=== PATIENT | male | born 1950 | race African-American/Black ===

== ENCOUNTER 2017-11-22 16:53 | Emergency (ER) | payer MEDICARE ==
[~2017-11-22] VITALS: Ht 182.9 cm; Wt 69.0 kg
[~2017-11-22 16:53] MED LIST: no home meds
[2017-11-22] MEDS ORDERED: SODIUM CHLORIDE 0.9% 1,000 ML IV ONE (17:40)
[2017-11-22 18:14] LABS: BASOPHILS % 0.5 % (0.0-2.0); CHLORIDE 105 mEq/L (98-107); EOSINOPHILS % 0.8 % (0.0-5.0); HEMOGLOBIN. 11.9 g/dL (14.0-18.0); LYMPHOCYTES % 34.7 % (20.0-50.0); MEAN CORPUSCULAR HEMOGLOBIN 28.2 pg (28.0-32.0); MEAN CORPUSCULAR VOLUME 85.6 fL (80.0-94.0); MEAN PLATELET VOLUME 7.3 fl (7.4-10.4); PLATELET 260 x1000/uL (130-400); RED BLOOD CELL COUNT 4.21 mill/uL (4.7-6.1); RED CELL DISTRIBUTION WIDTH 14.6 % (11.6-14.6)
[2017-11-22 18:18] LABS: ETHANOL BLOOD 181 mg/dL
[2017-11-22 18:19] LABS: PARTIAL THROMBOPLASTIN TIME 25.3 sec (23.4-31.0); PROTHROMBIN TIME 10.5 sec (9.4-11.6)
[2017-11-22 21:08] LABS: *AMPHETAMINES SCREEN URINE NEGATIVE (NEGATIVE); *COCAINE SCREEN URINE PRESUMTIVE POSITIVE (NEGATIVE)
[2017-11-22 21:09] LABS: *BARBITURATES SCREEN URINE NEGATIVE (NEGATIVE); *BENZODIAZEPINES SCREEN URINE NEGATIVE (NEGATIVE); CANNABINOID URINE SCREEN NEGATIVE (NEGATIVE); METHADONE URINE SCREEN NEGATIVE (NEGATIVE); OPIATES URINE SCREEN NEGATIVE (NEGATIVE); PHENCYCLIDINE URINE SCREEN NEGATIVE (NEGATIVE)
[2017-11-22 21:55] VITALS: BP 103/62
== END 2017-11-22 21:55 | disposition home or self-care (01) ==
LOC: ER 16:53
DX: R53.1 Weakness (principal); F10.129 Alcohol abuse with intoxication, unspecified; G92 Toxic encephalopathy; E86.0 Dehydration; E87.8 Other disorders of electrolyte and fluid balance, not elsewhere classified; Z88.0 Allergy status to penicillin
CPT/HCPCS: 36415; 70450; 80048; 80305; 80307; 80329; 84484; 85025; 85610; 85730; 93005; 96360; 96361; 99285; G0482; J7030

== ENCOUNTER 2017-12-29 11:40 | Emergency (ER) | payer MEDICARE ==
[~2017-12-29] VITALS: Ht 172.7 cm; Wt 70.0 kg
[2017-12-29] MEDS ORDERED: KETOROLAC 30MG/ML VIAL IV ONE (12:30)
[2017-12-29 12:34] VITALS: BP 148/88
== END 2017-12-29 12:51 | disposition home or self-care (01) ==
LOC: ER 11:56
DX: M25.562 Pain in left knee (principal); M25.561 Pain in right knee; I10 Essential (primary) hypertension; F14.10 Cocaine abuse, uncomplicated; Z88.0 Allergy status to penicillin; Z86.12 Personal history of poliomyelitis; X50.1XXA Overexertion from prolonged static or awkward postures, initial encounter; Y93.89 Activity, other specified; Y92.89 Other specified places as the place of occurrence of the external cause; Y99.8 Other external cause status
CPT/HCPCS: 96374; 99284; J1885; J7050

== ENCOUNTER 2018-05-29 07:10 | Emergency (ER) | payer MEDICARE ==
[~2018-05-29] VITALS: Ht 177.8 cm; Wt 68.2 kg
[2018-05-29] MEDS ORDERED: MORPHINE SULFATE 4 MG/ML CPJ (NOT FOR IM USE) IV STA (07:35)
[2018-05-29] MEDS ORDERED: SODIUM CHLORIDE 0.9% 1,000 ML IV ONE (07:35)
[2018-05-29] MEDS ORDERED: ONDANSETRON HCL 4MG/2ML INJ IV STA (07:35)
[2018-05-29] MEDS ORDERED: ASPIRIN 81MG TABLET PO ONE (07:45)
[2018-05-29] MEDS ORDERED: FAMOTIDINE 20MG/2ML VIAL IV ONE (07:45)
[2018-05-29 08:21] LABS: BASOPHILS % 0.9 % (0.0-2.0); HEMATOCRIT. 36.1 % (42.0-52.0); HEMOGLOBIN. 11.9 g/dL (14.0-18.0); MEAN CORPUSCULAR HEMOGLOBIN 28.1 pg (28.0-32.0); MEAN PLATELET VOLUME 7.2 fl (7.4-10.4); MONOCYTES % 12.9 % (2.0-8.0); NEUTROPHILS % 53.2 % (40.0-76.0); PLATELET 240 x1000/uL (130-400); RED BLOOD CELL COUNT 4.25 mill/uL (4.7-6.1); RED CELL DISTRIBUTION WIDTH 13.9 % (11.6-14.6)
[2018-05-29 08:27] LABS: PARTIAL THROMBOPLASTIN TIME 27.2 sec (23.4-31.0); PROTHROMBIN TIME 10.1 sec (9.1-11.1)
[2018-05-29 08:29] LABS: CHLORIDE 101 mEq/L (98-107)
[2018-05-29 08:39] LABS: *AMPHETAMINES SCREEN URINE PRESUMTIVE POSITIVE (NEGATIVE); *BARBITURATES SCREEN URINE NEGATIVE (NEGATIVE); *BENZODIAZEPINES SCREEN URINE NEGATIVE (NEGATIVE); *COCAINE SCREEN URINE NEGATIVE (NEGATIVE); CANNABINOID URINE SCREEN NEGATIVE (NEGATIVE); METHADONE URINE SCREEN NEGATIVE (NEGATIVE); OPIATES URINE SCREEN NEGATIVE (NEGATIVE); PHENCYCLIDINE URINE SCREEN NEGATIVE (NEGATIVE)
[2018-05-29 08:40] LABS: ETHANOL BLOOD < 10 mg/dL
[2018-05-29 09:40] VITALS: BP 123/68
== END 2018-05-29 12:22 | disposition left against medical advice (07) ==
LOC: ER 07:10 → EDBEDREQ 11:17 → EDBEDREQTM 11:17 → ER 12:22 → CANBEDREQ 12:55
DX: R07.89 Other chest pain (principal); R06.02 Shortness of breath; F15.10 Other stimulant abuse, uncomplicated; I10 Essential (primary) hypertension; F17.200 Nicotine dependence, unspecified, uncomplicated; F14.10 Cocaine abuse, uncomplicated; Z88.0 Allergy status to penicillin
CPT/HCPCS: 36415; 71045; 80053; 80305; 83880; 84484; 85025; 85610; 85730; 93005; 99285; G0482; J7030

== ENCOUNTER 2018-07-24 08:41 | Emergency (ER) | payer MEDICARE ==
[~2018-07-24] VITALS: Ht 180.3 cm; Wt 79.0 kg
[2018-07-24] MEDS ORDERED: SODIUM CHLORIDE 0.9% 1,000 ML IV ONE (16:29)
[2018-07-24 17:28] LABS: BASOPHILS % 1.1 % (0.0-2.0); EOSINOPHILS % 1.4 % (0.0-5.0); HEMATOCRIT. 36.8 % (42.0-52.0); HEMOGLOBIN. 12.2 g/dL (14.0-18.0); LYMPHOCYTES % 31.6 % (20.0-50.0); MEAN CORPUSCULAR HEMOGLOBIN 28.3 pg (28.0-32.0); MEAN CORPUSCULAR VOLUME 85.7 fL (80.0-94.0); MEAN PLATELET VOLUME 7.4 fl (7.4-10.4); MONOCYTES % 11.3 % (2.0-8.0); NEUTROPHILS % 54.6 % (40.0-76.0); PLATELET 283 x1000/uL (130-400); RED CELL DISTRIBUTION WIDTH 14.6 % (11.6-14.6)
[2018-07-24 17:33] LABS: CHLORIDE 102 mEq/L (98-107)
[2018-07-24 17:34] LABS: PROTHROMBIN TIME 10.2 sec (9.1-11.1)
[2018-07-24 17:38] LABS: ETHANOL BLOOD < 10 mg/dL
[2018-07-24 18:24] LABS: CLARITY URINE CLEAR (CLEAR); COLOR URINE YELLOW (YELLOW); KETONES URINE 1+ (NEGATIVE); LEUKOCYTE ESTERASE URINE NEGATIVE (NEGATIVE); NITRITE URINE NEGATIVE (NEGATIVE); OCCULT BLOOD URINE NEGATIVE (NEGATIVE); PROTEIN URINE NEGATIVE (NEGATIVE); SPECIFIC GRAVITY URINE 1.022 (1.005-1.030)
[2018-07-24 18:39] LABS: *AMPHETAMINES SCREEN URINE NEGATIVE (NEGATIVE); *BARBITURATES SCREEN URINE NEGATIVE (NEGATIVE); *BENZODIAZEPINES SCREEN URINE NEGATIVE (NEGATIVE); *COCAINE SCREEN URINE PRESUMTIVE POSITIVE (NEGATIVE); METHADONE URINE SCREEN NEGATIVE (NEGATIVE); OPIATES URINE SCREEN NEGATIVE (NEGATIVE)
[2018-07-24 18:40] LABS: CANNABINOID URINE SCREEN NEGATIVE (NEGATIVE); PHENCYCLIDINE URINE SCREEN NEGATIVE (NEGATIVE)
[2018-07-25 14:25] VITALS: BP 161/86
== END 2018-07-25 14:30 | disposition home or self-care (01) ==
LOC: ER 08:41
DX: F14.10 Cocaine abuse, uncomplicated (principal); E86.0 Dehydration; R45.851 Suicidal ideations; Z88.0 Allergy status to penicillin
CPT/HCPCS: 36415; 70450; 71045; 80053; 80305; 81003; 84484; 85025; 85610; 93005; 96360; 96361; 99284; G0482; J7030

== ENCOUNTER 2018-09-20 14:24 | Emergency (ER) | payer MEDICARE ==
[~2018-09-20] VITALS: Ht 177.8 cm; Wt 80.0 kg
[2018-09-20 14:37] VITALS: BP 126/73
== END 2018-09-20 17:35 | disposition left against medical advice (07) ==
LOC: ER 14:24
DX: R44.0 Auditory hallucinations (principal); Z53.21 Procedure and treatment not carried out due to patient leaving prior to being seen by health care provider

== ENCOUNTER 2018-09-30 16:52 | Emergency (ER) | payer MEDICARE ==
[~2018-09-30] VITALS: Ht 182.9 cm; Wt 81.0 kg
[2018-09-30] MEDS ORDERED: SODIUM CHLORIDE 0.9% 500 ML IV ONE (17:45)
[2018-09-30] MEDS ORDERED: ACETAMINOPHEN 325MG TABLET PO ONE (17:45)
[2018-09-30 19:24] LABS: CHLORIDE 103 mEq/L (98-107)
[2018-09-30 19:26] LABS: BASOPHILS % 0.8 % (0.0-2.0); EOSINOPHILS % 1.1 % (0.0-5.0); HEMATOCRIT. 40.3 % (42.0-52.0); HEMOGLOBIN. 13.2 g/dL (14.0-18.0); LYMPHOCYTES % 35.9 % (20.0-50.0); MEAN CORPUSCULAR HEMOGLOBIN 28.2 pg (28.0-32.0); MEAN CORPUSCULAR VOLUME 86.2 fL (80.0-94.0); MEAN PLATELET VOLUME 8.2 fl (7.4-10.4); MONOCYTES % 8.3 % (2.0-8.0); NEUTROPHILS % 53.9 % (40.0-76.0); PLATELET 311 x1000/uL (130-400); RED BLOOD CELL COUNT 4.68 mill/uL (4.7-6.1); RED CELL DISTRIBUTION WIDTH 14.1 % (11.6-14.6)
[2018-09-30 19:52] LABS: HEPATITIS B SURFACE ANTIGEN NEGATIVE
[2018-09-30 20:22] LABS: HEPATITIS A AB IGM NEGATIVE (NEGATIVE)
[2018-10-01 01:30] LABS: CLARITY URINE CLEAR (CLEAR); COLOR URINE YELLOW (YELLOW); KETONES URINE NEGATIVE (NEGATIVE); LEUKOCYTE ESTERASE URINE NEGATIVE (NEGATIVE); NITRITE URINE NEGATIVE (NEGATIVE); OCCULT BLOOD URINE NEGATIVE (NEGATIVE); PH URINE 7.5 (4.5-8.0); PROTEIN URINE NEGATIVE (NEGATIVE)
[2018-10-01 01:41] LABS: *AMPHETAMINES SCREEN URINE NEGATIVE (NEGATIVE); *BARBITURATES SCREEN URINE NEGATIVE (NEGATIVE); *BENZODIAZEPINES SCREEN URINE NEGATIVE (NEGATIVE); *COCAINE SCREEN URINE PRESUMTIVE POSITIVE (NEGATIVE); METHADONE URINE SCREEN NEGATIVE (NEGATIVE); OPIATES URINE SCREEN NEGATIVE (NEGATIVE); PHENCYCLIDINE URINE SCREEN NEGATIVE (NEGATIVE)
[2018-10-01 01:42] LABS: CANNABINOID URINE SCREEN PRESUMTIVE POSITIVE (NEGATIVE)
[2018-10-01 09:25] VITALS: BP 125/68
[2018-10-03 13:06] LABS: HIV SCREEN 4G Non Reactive (Non Reactive)
== END 2018-10-01 10:22 | disposition home or self-care (01) ==
LOC: ER 16:52
DX: M94.0 Chondrocostal junction syndrome [Tietze] (principal); F14.180 Cocaine abuse with cocaine-induced anxiety disorder; E86.0 Dehydration; D64.9 Anemia, unspecified; D72.821 Monocytosis (symptomatic); E87.6 Hypokalemia; R74.0 Nonspecific elevation of levels of transaminase and lactic acid dehydrogenase [LDH]; M72.2 Plantar fascial fibromatosis; M79.672 Pain in left foot; M79.671 Pain in right foot; R79.89 Other specified abnormal findings of blood chemistry; A80.9 Acute poliomyelitis, unspecified; F41.9 Anxiety disorder, unspecified; K21.9 Gastro-esophageal reflux disease without esophagitis; I10 Essential (primary) hypertension; R56.9 Unspecified convulsions
CPT/HCPCS: 36415; 71045; 80053; 80305; 81003; 83874; 83880; 84484; 85025; 87389; 93005; 96360; 99284; J7040; 86705; 86709; 86803; 87340

== ENCOUNTER 2018-10-08 00:55 | Emergency (ER) | payer MEDICARE ==
[~2018-10-08] VITALS: Ht 185.4 cm; Wt 70.3 kg
[2018-10-08 02:56] VITALS: BP 132/84
== END 2018-10-08 03:00 | disposition left against medical advice (07) ==
LOC: ER 00:55
DX: Z53.21 Procedure and treatment not carried out due to patient leaving prior to being seen by health care provider (principal); F41.9 Anxiety disorder, unspecified; K21.9 Gastro-esophageal reflux disease without esophagitis; I10 Essential (primary) hypertension; R56.9 Unspecified convulsions

== ENCOUNTER 2019-10-22 17:41 | Emergency (ER) | payer MEDICARE ==
[~2019-10-22] VITALS: Ht 182.9 cm; Wt 74.0 kg
[2019-10-22 17:42] VITALS: BP 142/88
== END 2019-10-22 19:34 | disposition left against medical advice (07) ==
LOC: ER 17:41
DX: J06.9 Acute upper respiratory infection, unspecified (principal); I10 Essential (primary) hypertension; E11.9 Type 2 diabetes mellitus without complications; F12.10 Cannabis abuse, uncomplicated; Z88.0 Allergy status to penicillin
CPT/HCPCS: 71045; 99283

== ENCOUNTER 2019-10-28 19:31 | Inpatient (IN) | payer MEDICARE, MEDICAID ==
[~2019-10-28] VITALS: Ht 182.9 cm; Wt 72.6 kg
[2019-10-28] MEDS ORDERED: SODIUM CHLORIDE 0.9% 1,000 ML IV ONE (20:00)
[2019-10-28 20:34] LABS: BASOPHILS % 1.1 % (0.0-2.0); EOSINOPHILS % 2.4 % (0.0-5.0); HEMATOCRIT. 33.8 % (42.0-52.0); HEMOGLOBIN. 11.6 g/dL (14.0-18.0); LYMPHOCYTES % 39.7 % (20.0-50.0); MEAN CORPUSCULAR HEMOGLOBIN 27.6 pg (28.0-32.0); MEAN CORPUSCULAR VOLUME 80.4 fL (80.0-94.0); MEAN PLATELET VOLUME 7.4 fl (7.4-10.4); NEUTROPHILS % 47.8 % (40.0-76.0); PLATELET 228 x1000/uL (130-400); RED BLOOD CELL COUNT 4.21 mill/uL (4.7-6.1); RED CELL DISTRIBUTION WIDTH 15.7 % (11.6-14.6)
[2019-10-28 20:38] LABS: CHLORIDE 107 mEq/L (98-107)
[2019-10-28 20:42] LABS: ETHANOL BLOOD 50 mg/dL
[2019-10-28] MEDS ORDERED: ASPIRIN 325MG TABLET PO NR (21:45)
[2019-10-28] MEDS ORDERED: MAGNESIUM/ALUMINUM HYDROXIDE/SIMETHICONE 30ML UDC PO ONE (22:00)
[2019-10-28] MEDS ORDERED: VISCOUS LIDOCAINE 2% 15 ML UDC PO ONE (22:00)
[2019-10-28] MEDS ORDERED: ACETAMINOPHEN 325MG TABLET PO PRN ×2 (22:15)
[2019-10-28] MEDS ORDERED: ONDANSETRON HCL 4MG/2ML INJ IV PRN (22:15)
[2019-10-28] MEDS ORDERED: LORAZEPAM 0.5MG TABLET PO PRN (22:15)
[2019-10-28] MEDS ORDERED: MAGNESIUM/ALUMINUM HYDROXIDE/SIMETHICONE 30ML UDC PO PRN (22:15)
[2019-10-28] MEDS ORDERED: KETOROLAC 15MG/ML VIAL IV PRN (22:15)
[2019-10-28] MEDS ORDERED: CLONIDINE 0.1MG TABLET PO PRN (22:15)
[2019-10-28] MEDS ORDERED: GUAIFENESIN 200MG/10ML SUGAR FREE UDC PO PRN (22:15)
[2019-10-28] MEDS ORDERED: DOCUSATE SODIUM 100MG CAPSULE PO PRN (22:15)
[2019-10-28] MEDS ORDERED: IPRATROPIUM/ALBUTEROL 0.5-3(2.5)MG/3ML NEB NEB PRN (22:15)
[2019-10-28] MEDS ORDERED: NITROGLYCERIN 0.4MG TABLET SL SL PRN (22:15)
[2019-10-28] MEDS ORDERED: TRAMADOL 50MG TABLET PO PRN (22:15)
[2019-10-29] MEDS ORDERED: MVI, ADULT NO.1 10 ML, FOLIC ACID 1 MG, THIAMINE HCL 100 MG in SODIUM CHLORIDE 0.9% 1,0... IV SCH ×4 (01:00)
[2019-10-29 02:11] LABS: CLARITY URINE CLEAR (CLEAR); COLOR URINE YELLOW (YELLOW); KETONES URINE NEGATIVE (NEGATIVE); LEUKOCYTE ESTERASE URINE NEGATIVE (NEGATIVE); NITRITE URINE NEGATIVE (NEGATIVE); OCCULT BLOOD URINE NEGATIVE (NEGATIVE); PROTEIN URINE NEGATIVE (NEGATIVE); SPECIFIC GRAVITY URINE 1.022 (1.005-1.030)
[2019-10-29 02:39] LABS: *AMPHETAMINES SCREEN URINE NEGATIVE (NEGATIVE); *BARBITURATES SCREEN URINE NEGATIVE (NEGATIVE); *BENZODIAZEPINES SCREEN URINE NEGATIVE (NEGATIVE); *COCAINE SCREEN URINE NEGATIVE (NEGATIVE)
[2019-10-29 02:40] LABS: CANNABINOID URINE SCREEN NEGATIVE (NEGATIVE); METHADONE URINE SCREEN NEGATIVE (NEGATIVE); OPIATES URINE SCREEN NEGATIVE (NEGATIVE); PHENCYCLIDINE URINE SCREEN NEGATIVE (NEGATIVE)
[2019-10-29] MEDS: FAMOTIDINE 20MG TABLET PO SCH ×2 (10:33→20:54)
[2019-10-29] MEDS: ASPIRIN 81MG EC TABLET PO SCH (10:33)
[2019-10-29 11:55] LABS: CREATINE KINASE 507 IU/L (39-308)
[2019-10-29 11:56] LABS: CREATINE KINASE MB FRACTION 3.5 ng/mL (0.5-3.6)
[2019-10-29 12:00] VITALS: BP 122/75
[2019-10-29] MEDS: SUCRALFATE 1 G/10 ML UDC PO SCH ×3 (13:15→20:54)
[2019-10-29] MEDS ORDERED: AMLO5TAB88 PO (15:24)
[2019-10-29] MEDS ORDERED: OMEP20TA2 PO (15:24)
[2019-10-29] MEDS ORDERED: ATOR20TA65 PO (15:24)
[2019-10-29] MEDS ORDERED: FERR325T6 PO (15:25)
[2019-10-29 16:00] VITALS: BP 111/75
[2019-10-29 20:00] VITALS: BP 101/66
[2019-10-29] MEDS ORDERED: ZOLPIDEM TARTRATE 5MG TABLET PO PRN (21:00)
[2019-10-30] VITALS: BP 97/69
[2019-10-30 04:00] VITALS: BP 109/67
[2019-10-30 07:55] LABS: CREATINE KINASE 270 IU/L (39-308); CREATINE KINASE MB FRACTION 1.8 ng/mL (0.5-3.6)
[2019-10-30 08:00] VITALS: BP 103/64
[2019-10-30] MEDS: ASPIRIN 81MG EC TABLET PO SCH (08:48)
[2019-10-30] MEDS: FAMOTIDINE 20MG TABLET PO SCH ×2 (08:48→21:52)
[2019-10-30] MEDS: SUCRALFATE 1 G/10 ML UDC PO SCH ×4 (08:48→21:52)
[2019-10-30] MEDS: ENOXAPARIN 40MG/0.4ML SYR SUBCUT SCH (08:55)
[2019-10-30 12:00] VITALS: BP 106/64
[2019-10-30 16:00] VITALS: BP 101/68
[2019-10-30 20:00] VITALS: BP 100/61
[2019-10-31] VITALS: BP 122/86
[2019-10-31 04:00] VITALS: BP 107/70
[2019-10-31] MEDS: SUCRALFATE 1 G/10 ML UDC PO SCH (07:40)
[2019-10-31 08:00] VITALS: BP 127/73
[2019-10-31] MEDS: ASPIRIN 81MG EC TABLET PO SCH (09:04)
[2019-10-31] MEDS: FAMOTIDINE 20MG TABLET PO SCH (09:04)
[2019-10-31] MEDS: ENOXAPARIN 40MG/0.4ML SYR SUBCUT SCH (09:05)
[2019-10-31 10:39] VITALS: BP 127/73
== END 2019-10-31 12:07 | disposition home or self-care (01) | DRG 301 ==
LOC: EDBD 19:31 → ER 19:31 → 7WST 21:51 → SUPCPDRO 22:08 → ENRESERV 10-29 07:11
PROVIDERS: ADMIT Internal Medicine; ATTEND Internal Medicine
DX: I73.9 Peripheral vascular disease, unspecified (principal); K21.9 Gastro-esophageal reflux disease without esophagitis; D63.8 Anemia in other chronic diseases classified elsewhere; F10.10 Alcohol abuse, uncomplicated; F14.10 Cocaine abuse, uncomplicated; F17.210 Nicotine dependence, cigarettes, uncomplicated; I10 Essential (primary) hypertension; R74.0 Nonspecific elevation of levels of transaminase and lactic acid dehydrogenase [LDH]; Z59.0 Homelessness; Z88.0 Allergy status to penicillin; Z88.8 Allergy status to other drugs, medicaments and biological substances
CPT/HCPCS: 36415; 71045; 80053; 80061; 80305; 80320; 81003; 82550; 82553; 82607; 82746; 82962; 83036; 83540; 83550; 83880; 84484; 85025; 93005; 93970; 97162; 97166; 99285; J1650; J3411; J3490; J7030; G0480

== ENCOUNTER 2019-12-21 17:33 | Emergency (ER) | payer MEDICARE, MEDICAID ==
[~2019-12-21] VITALS: Ht 182.9 cm; Wt 64.0 kg
[~2019-12-21 17:33] MED LIST changes: +AMLO5TAB88 PO; +ATOR20TA65 PO; +FERR325T6 PO; +OMEP20TA2 PO; -no home meds
[2019-12-21] MEDS ORDERED: SODIUM CHLORIDE 0.9% 250 ML IV ONE (18:00)
[2019-12-21 19:14] LABS: BASOPHILS % 0.7 % (0.0-2.0); EOSINOPHILS % 1.1 % (0.0-5.0); HEMATOCRIT. 33.9 % (42.0-52.0); HEMOGLOBIN. 11.4 g/dL (14.0-18.0); LYMPHOCYTES % 37.3 % (20.0-50.0); MEAN CORPUSCULAR HEMOGLOBIN 27.5 pg (28.0-32.0); MEAN CORPUSCULAR VOLUME 81.8 fL (80.0-94.0); MEAN PLATELET VOLUME 7.1 fl (7.4-10.4); MONOCYTES % 10.3 % (2.0-8.0); NEUTROPHILS % 50.6 % (40.0-76.0); PLATELET 229 x1000/uL (130-400); RED BLOOD CELL COUNT 4.15 mill/uL (4.7-6.1); RED CELL DISTRIBUTION WIDTH 15.4 % (11.6-14.6)
[2019-12-21 19:20] LABS: CHLORIDE 104 mEq/L (98-107)
[2019-12-22 10:55] VITALS: BP 118/68
== END 2019-12-22 10:55 | disposition home or self-care (01) ==
LOC: EDBD 17:33 → ER 17:33
DX: R53.1 Weakness (principal); I10 Essential (primary) hypertension; F12.10 Cannabis abuse, uncomplicated; Z79.899 Other long term (current) drug therapy; Z88.0 Allergy status to penicillin
CPT/HCPCS: 36415; 80053; 84484; 85025; 93005; 96360; 99285; J7050

== ENCOUNTER 2020-01-30 11:06 | Emergency (ER) | payer MEDICARE, MEDICAID ==
[~2020-01-30] VITALS: Ht 182.9 cm; Wt 75.0 kg
[2020-01-30 12:09] LABS: BASOPHILS % 0.9 % (0.0-2.0); EOSINOPHILS % 1.2 % (0.0-5.0); HEMATOCRIT. 35.4 % (42.0-52.0); MEAN CORPUSCULAR HEMOGLOBIN 27.9 pg (28.0-32.0); MEAN CORPUSCULAR VOLUME 82.7 fL (80.0-94.0); MEAN PLATELET VOLUME 7.7 fl (7.4-10.4); MONOCYTES % 10.6 % (2.0-8.0); NEUTROPHILS % 59.3 % (40.0-76.0); PLATELET 239 x1000/uL (130-400); RED BLOOD CELL COUNT 4.29 mill/uL (4.7-6.1); RED CELL DISTRIBUTION WIDTH 15.2 % (11.6-14.6)
[2020-01-30 12:14] LABS: CHLORIDE 107 mEq/L (98-107)
[2020-01-30 13:26] VITALS: BP 118/67
== END 2020-01-30 13:30 | disposition home or self-care (01) ==
LOC: ER 11:24 → EDBD 11:24 → ER 13:30
DX: R07.89 Other chest pain (principal); F19.90 Other psychoactive substance use, unspecified, uncomplicated; F17.200 Nicotine dependence, unspecified, uncomplicated; F15.10 Other stimulant abuse, uncomplicated; I10 Essential (primary) hypertension; Z88.0 Allergy status to penicillin; Z79.899 Other long term (current) drug therapy
CPT/HCPCS: 36415; 80053; 84484; 85025; 93005; 99284

== ENCOUNTER 2020-05-16 15:06 | Emergency (ER) | payer MEDICARE, MEDICAID ==
[~2020-05-16] VITALS: Ht 182.9 cm; Wt 59.0 kg
[2020-05-16 17:01] VITALS: BP 112/78
== END 2020-05-16 17:01 | disposition left against medical advice (07) ==
LOC: ER 15:06
DX: L25.3 Unspecified contact dermatitis due to other chemical products (principal); I10 Essential (primary) hypertension; E78.5 Hyperlipidemia, unspecified; Z88.0 Allergy status to penicillin
CPT/HCPCS: 99281

== ENCOUNTER 2020-08-07 09:58 | Emergency (ER) | payer MEDICARE, MEDICAID ==
[~2020-08-07] VITALS: Ht 182.9 cm; Wt 70.0 kg
[2020-08-07] MEDS ORDERED: OLANZAPINE 5MG TABLET PO SCH (13:45)
[2020-08-07] MEDS ORDERED: LORAZEPAM 1MG TABLET PO ONE (13:45)
[2020-08-07 15:24] VITALS: BP 147/79
[2020-08-07 16:18] LABS: *AMPHETAMINES SCREEN URINE NEGATIVE (NEGATIVE); *BARBITURATES SCREEN URINE NEGATIVE (NEGATIVE); *BENZODIAZEPINES SCREEN URINE NEGATIVE (NEGATIVE); *COCAINE SCREEN URINE PRESUMTIVE POSITIVE (NEGATIVE); METHADONE URINE SCREEN NEGATIVE (NEGATIVE); OPIATES URINE SCREEN NEGATIVE (NEGATIVE)
[2020-08-07 16:19] LABS: CANNABINOID URINE SCREEN NEGATIVE (NEGATIVE); PHENCYCLIDINE URINE SCREEN NEGATIVE (NEGATIVE)
== END 2020-08-07 15:24 | disposition home or self-care (01) ==
LOC: ER 10:29
DX: F22 Delusional disorders (principal); F41.9 Anxiety disorder, unspecified; F14.10 Cocaine abuse, uncomplicated; I10 Essential (primary) hypertension; F15.10 Other stimulant abuse, uncomplicated; Z88.0 Allergy status to penicillin
CPT/HCPCS: 80305; 99284

== ENCOUNTER 2020-09-19 20:46 | Emergency (ER) | payer MEDICARE, MEDICAID ==
[~2020-09-19] VITALS: Ht 180.3 cm; Wt 68.0 kg
[2020-09-19 21:28] LABS: BASOPHILS % 0.8 % (0.0-2.0); EOSINOPHILS % 2.4 % (0.0-5.0); HEMATOCRIT. 37.8 % (42.0-52.0); HEMOGLOBIN. 12.5 g/dL (14.0-18.0); LYMPHOCYTES % 32.6 % (20.0-50.0); MEAN CORPUSCULAR VOLUME 84.8 fL (80.0-94.0); MEAN PLATELET VOLUME 7.3 fl (7.4-10.4); MONOCYTES % 8.4 % (2.0-8.0); NEUTROPHILS % 55.8 % (40.0-76.0); PLATELET 254 x1000/uL (130-400); RED BLOOD CELL COUNT 4.46 mill/uL (4.7-6.1); RED CELL DISTRIBUTION WIDTH 15.4 % (11.6-14.6)
[2020-09-19 21:35] LABS: CHLORIDE 103 mEq/L (98-107)
[2020-09-19 21:38] LABS: ETHANOL BLOOD 78 mg/dL
[2020-09-19 22:46] LABS: CLARITY URINE CLEAR (CLEAR); COLOR URINE YELLOW (YELLOW); KETONES URINE NEGATIVE (NEGATIVE); LEUKOCYTE ESTERASE URINE NEGATIVE (NEGATIVE); NITRITE URINE NEGATIVE (NEGATIVE); OCCULT BLOOD URINE NEGATIVE (NEGATIVE); PH URINE 5.5 (4.5-8.0); PROTEIN URINE 1+ (NEGATIVE); SPECIFIC GRAVITY URINE 1.011 (1.005-1.030)
[2020-09-19 22:57] LABS: *BENZODIAZEPINES SCREEN URINE NEGATIVE (NEGATIVE); *COCAINE SCREEN URINE PRESUMTIVE POSITIVE (NEGATIVE); METHADONE URINE SCREEN NEGATIVE (NEGATIVE); OPIATES URINE SCREEN NEGATIVE (NEGATIVE)
[2020-09-19 22:58] LABS: *AMPHETAMINES SCREEN URINE NEGATIVE (NEGATIVE); *BARBITURATES SCREEN URINE NEGATIVE (NEGATIVE); CANNABINOID URINE SCREEN NEGATIVE (NEGATIVE); PHENCYCLIDINE URINE SCREEN NEGATIVE (NEGATIVE)
[2020-09-20] MEDS: OLANZAPINE 5MG TABLET PO SCH (01:00)
[2020-09-20 11:00] VITALS: BP 128/76
== END 2020-09-20 11:15 | disposition home or self-care (01) ==
LOC: ER 20:46
DX: F29 Unspecified psychosis not due to a substance or known physiological condition (principal); I10 Essential (primary) hypertension; Z98.890 Other specified postprocedural states; Z88.0 Allergy status to penicillin
CPT/HCPCS: 36415; 80053; 80305; 80320; 81003; 85025; 99285; G0480

== ENCOUNTER 2020-11-11 15:20 | Inpatient (IN) | payer MEDICARE, MEDICAID ==
[~2020-11-11] VITALS: Ht 182.9 cm; Wt 75.3 kg
[2020-11-11] MEDS ORDERED: SODIUM CHLORIDE 0.9% 1,000 ML IV ONE (16:30)
[2020-11-11] MEDS ORDERED: MAGNESIUM CITRATE 300ML SOLUTION PO ONE ×2 (16:30→19:30)
[2020-11-11 17:42] LABS: BASOPHILS % 0.7 % (0.0-2.0); EOSINOPHILS % 0.8 % (0.0-5.0); HEMATOCRIT. 34.2 % (42.0-52.0); HEMOGLOBIN. 11.1 g/dL (14.0-18.0); LYMPHOCYTES % 26.1 % (20.0-50.0); MEAN CORPUSCULAR VOLUME 86.2 fL (80.0-94.0); MEAN PLATELET VOLUME 7.6 fl (7.4-10.4); MONOCYTES % 8.5 % (2.0-8.0); NEUTROPHILS % 63.9 % (40.0-76.0); PLATELET 232 x1000/uL (130-400); RED BLOOD CELL COUNT 3.97 mill/uL (4.7-6.1)
[2020-11-11 17:48] LABS: CHLORIDE 111 mEq/L (98-107)
[2020-11-11 17:52] LABS: PROTHROMBIN TIME 10.7 sec (9.6-11.0)
[2020-11-11] MEDS ORDERED: MAGNESIUM HYDROXIDE 400MG/5ML 30ML UDC PO ONE (18:15)
[2020-11-12] VITALS (7 sets, daily range): BP systolic 107–131; BP diastolic 68–88
[2020-11-12] MEDS ORDERED: ONDANSETRON HCL 4MG/2ML INJ IV PRN (04:30)
[2020-11-12] MEDS ORDERED: ACETAMINOPHEN 325MG TABLET PO PRN (04:30)
[2020-11-12 07:46] LABS: BASOPHILS % 0.8 % (0.0-2.0); EOSINOPHILS % 1.8 % (0.0-5.0); HEMATOCRIT. 33.5 % (42.0-52.0); LYMPHOCYTES % 34.5 % (20.0-50.0); MEAN CORPUSCULAR HEMOGLOBIN 28.2 pg (28.0-32.0); MEAN CORPUSCULAR VOLUME 86.1 fL (80.0-94.0); MEAN PLATELET VOLUME 7.1 fl (7.4-10.4); MONOCYTES % 10.8 % (2.0-8.0); NEUTROPHILS % 52.1 % (40.0-76.0); PLATELET 214 x1000/uL (130-400); RED BLOOD CELL COUNT 3.89 mill/uL (4.7-6.1); RED CELL DISTRIBUTION WIDTH 14.9 % (11.6-14.6)
[2020-11-12 08:29] LABS: CHLORIDE 110 mEq/L (98-107)
[2020-11-12 18:05] LABS: CARCINO EMBRYONIC ANTIGEN 1.5 ng/ml
[2020-11-12 18:16] LABS: HEPATITIS B SURFACE ANTIGEN NEGATIVE
[2020-11-12 18:45] LABS: HEPATITIS A AB IGM NEGATIVE (NEGATIVE)
[2020-11-13] VITALS: BP 115/75
[2020-11-13 04:00] VITALS: BP 123/80
[2020-11-13 06:58] LABS: CHLORIDE 108 mEq/L (98-107)
[2020-11-13 06:59] LABS: EOSINOPHILS % 2.4 % (0.0-5.0); HEMOGLOBIN. 11.6 g/dL (14.0-18.0); LYMPHOCYTES % 43.5 % (20.0-50.0); MEAN CORPUSCULAR HEMOGLOBIN 28.1 pg (28.0-32.0); MEAN CORPUSCULAR VOLUME 85.2 fL (80.0-94.0); MEAN PLATELET VOLUME 7.3 fl (7.4-10.4); MONOCYTES % 9.2 % (2.0-8.0); NEUTROPHILS % 43.9 % (40.0-76.0); PLATELET 235 x1000/uL (130-400); RED BLOOD CELL COUNT 4.11 mill/uL (4.7-6.1); RED CELL DISTRIBUTION WIDTH 14.6 % (11.6-14.6)
[2020-11-13 08:00] VITALS: BP 123/72
[2020-11-13 12:00] VITALS: BP 111/65
[2020-11-13] MEDS ORDERED: DIATR MEGLU/DIATRIZOATE SOLN 30ML PO SCH (14:00)
[2020-11-13 16:00] VITALS: BP 158/77
[2020-11-13 20:00] VITALS: BP 108/69
[2020-11-14] VITALS: BP 107/77
[2020-11-14 04:00] VITALS: BP 97/56
[2020-11-14 07:17] LABS: BASOPHILS % 0.5 % (0.0-2.0); EOSINOPHILS % 1.8 % (0.0-5.0); HEMATOCRIT. 33.7 % (42.0-52.0); LYMPHOCYTES % 40.5 % (20.0-50.0); MEAN CORPUSCULAR HEMOGLOBIN 27.8 pg (28.0-32.0); MEAN CORPUSCULAR VOLUME 85.1 fL (80.0-94.0); MEAN PLATELET VOLUME 7.7 fl (7.4-10.4); MONOCYTES % 10.3 % (2.0-8.0); NEUTROPHILS % 46.9 % (40.0-76.0); PLATELET 235 x1000/uL (130-400); RED BLOOD CELL COUNT 3.96 mill/uL (4.7-6.1); RED CELL DISTRIBUTION WIDTH 14.6 % (11.6-14.6)
[2020-11-14 07:30] LABS: CHLORIDE 107 mEq/L (98-107)
[2020-11-14 08:00] VITALS: BP 112/71
[2020-11-14] MEDS ORDERED: DIATR MEGLU/DIATRIZOATE SOLN 30ML PO NR (10:15)
[2020-11-14] MEDS ORDERED: IOHEXOL-300 100 ML BOTTLE ONE (13:39)
[2020-11-14] MEDS: MEGESTROL ACETATE 400 MG/10 ML UDC PO SCH (14:50)
[2020-11-14 20:00] VITALS: BP 112/64
[2020-11-15] VITALS: BP 122/70
[2020-11-15 04:00] VITALS: BP 111/67
[2020-11-15 08:00] VITALS: BP 109/71
[2020-11-15] MEDS: MEGESTROL ACETATE 400 MG/10 ML UDC PO SCH (09:00)
[2020-11-15 09:25] VITALS: BP 109/71
== END 2020-11-15 09:43 | disposition home or self-care (01) | DRG 392 ==
LOC: ER 15:20 → 6EST 22:25 → EDBEDREQ 22:31 → EDBEDREQSVC 22:31 → ENRESERV 23:22
PROVIDERS: ADMIT Internal Medicine; ATTEND Internal Medicine
DX: K59.00 Constipation, unspecified (principal); E44.1 Mild protein-calorie malnutrition; K62.89 Other specified diseases of anus and rectum; I10 Essential (primary) hypertension; K21.9 Gastro-esophageal reflux disease without esophagitis; N20.0 Calculus of kidney; Z20.822 Contact with and (suspected) exposure to COVID-19; K57.30 Diverticulosis of large intestine without perforation or abscess without bleeding; K76.9 Liver disease, unspecified; F17.200 Nicotine dependence, unspecified, uncomplicated; Z88.0 Allergy status to penicillin; Z86.12 Personal history of poliomyelitis; Z68.22 Body mass index [BMI] 22.0-22.9, adult; Z86.010 Personal history of colon polyps
CPT/HCPCS: 36415; 71045; 74176; 74177; 76700; 80048; 80053; 82105; 82378; 84153; 85025; 86301; 86705; 86709; 86803; 87340; 87426; 93005; 99285; J7030; Q9963; Q9967; G0103

== ENCOUNTER 2021-03-30 12:50 | Emergency (ER) | payer MEDICARE, MEDICAID ==
[~2021-03-30] VITALS: Ht 170.2 cm; Wt 65.0 kg
[2021-03-30] MEDS ORDERED: LORAZEPAM 2MG/ML CPJ IV STA (13:19)
[2021-03-30] MEDS ORDERED: SODIUM CHLORIDE 0.9% 1,000 ML IV ONE (13:30)
[2021-03-30 15:10] LABS: BASOPHILS % 1.1 % (0.0-2.0); EOSINOPHILS % 1.2 % (0.0-5.0); HEMATOCRIT. 35.1 % (42.0-52.0); HEMOGLOBIN. 11.5 g/dL (14.0-18.0); LYMPHOCYTES % 35.5 % (20.0-50.0); MEAN CORPUSCULAR HEMOGLOBIN 27.7 pg (28.0-32.0); MEAN CORPUSCULAR VOLUME 84.3 fL (80.0-94.0); MEAN PLATELET VOLUME 7.7 fl (7.4-10.4); MONOCYTES % 9.1 % (2.0-8.0); NEUTROPHILS % 53.1 % (40.0-76.0); PLATELET 236 x1000/uL (130-400); RED BLOOD CELL COUNT 4.16 mill/uL (4.7-6.1); RED CELL DISTRIBUTION WIDTH 13.8 % (11.6-14.6)
[2021-03-30 15:22] LABS: CHLORIDE 110 mEq/L (98-107)
[2021-03-30 15:30] LABS: ETHANOL BLOOD < 10 mg/dL
[2021-03-30 15:32] LABS: CLARITY URINE CLEAR (CLEAR); COLOR URINE DARK YELLOW (YELLOW); KETONES URINE TRACE (NEGATIVE); LEUKOCYTE ESTERASE URINE NEGATIVE (NEGATIVE); NITRITE URINE NEGATIVE (NEGATIVE); OCCULT BLOOD URINE NEGATIVE (NEGATIVE); PROTEIN URINE 1+ (NEGATIVE)
[2021-03-30 16:19] LABS: *AMPHETAMINES SCREEN URINE NEGATIVE (NEGATIVE); *BARBITURATES SCREEN URINE NEGATIVE (NEGATIVE); *BENZODIAZEPINES SCREEN URINE NEGATIVE (NEGATIVE); *COCAINE SCREEN URINE PRESUMTIVE POSITIVE (NEGATIVE); METHADONE URINE SCREEN NEGATIVE (NEGATIVE); OPIATES URINE SCREEN NEGATIVE (NEGATIVE)
[2021-03-30 16:20] LABS: CANNABINOID URINE SCREEN NEGATIVE (NEGATIVE); PHENCYCLIDINE URINE SCREEN NEGATIVE (NEGATIVE)
[2021-03-31] MEDS ORDERED: NALO4SPR BOTHNSTRLS (04:31)
[2021-03-31 05:16] VITALS: BP 118/77
== END 2021-03-31 05:44 | disposition home or self-care (01) ==
LOC: ER 12:50
DX: R44.0 Auditory hallucinations (principal); I10 Essential (primary) hypertension; D72.819 Decreased white blood cell count, unspecified; F14.10 Cocaine abuse, uncomplicated; Z86.12 Personal history of poliomyelitis; Z87.891 Personal history of nicotine dependence; Z20.822 Contact with and (suspected) exposure to COVID-19; Z88.0 Allergy status to penicillin
CPT/HCPCS: 36415; 80053; 80305; 80307; 80320; 80329; 81003; 85025; 96374; 99285; C9803; J2060; J7030; U0003; U0005; G0480